=== PATIENT | male | born 1950 | race Hispanic/Latino ===

== ENCOUNTER 2018-09-11 07:12 | Day surgery (SDC) | payer OTHER, MEDICARE ==
[2018-09-08 11:38] LABS: EOSINOPHILS % (AUTO) 2.4 % (0.0-8.0); HEMATOCRIT 44.4 % (36-48); LYMPHOCYTES % (AUTO) 26.9 % (21.0-51.0); MEAN CORPUSCULAR HEMOGLOBIN 29.5 pg (27.0-33.0); MEAN CORPUSCULAR HGB CONC 32.9 g/dL (32.0-36.0); MEAN CORPUSCULAR VOLUME 89.8 fL (79-99); MONOCYTES % (AUTO) 6.3 % (3.0-13.0); NEUTROPHILS % (AUTO) 63.4 % (40.0-77.0); PLATELET COUNT (AUTO) 272 K/uL (130-400); RED BLOOD CELL COUNT(AUTO) 4.94 MIL/uL (4.00-5.50); RED CELL DISTRIBUTION WIDTH 13.6 % (11.0-15.5); WHITE BLOOD COUNT (AUTO) 6.3 K/uL (4.8-10.8)
[2018-09-08 11:40] VITALS: BP 111/78
[2018-09-08 11:53] LABS: INR 0.94 (0.85-1.15); PARTIAL THROMBOPLASTIN TIME 30.6 SEC (26.3-35.5); PROTHROMBIN TIME 9.9 SEC (9.6-11.6)
[2018-09-08 11:57] LABS: CREATININE 0.8 mg/dL (0.5-1.5); POTASSIUM 4.4 mmol/L (3.5-5.1)
[2018-09-08 12:12] LABS: APPEARANCE,URINE Clear (CLEAR); BILIRUBIN,URINE Negative (NEGATIVE); COLOR,URINE Yellow (YELLOW); GLUCOSE, URINE (UA) Negative (NEGATIVE); KETONES,URINE Negative (NEGATIVE); LEUKOCYTE ESTERASE ,URINE Large (NEGATIVE); NITRATE,URINE Positive (NEGATIVE); OCCULT BLOOD,URINE Small (NEGATIVE); PROTEIN,URINE Negative (NEGATIVE); UROBILINOGEN,URINE 0.2 mg/dL (0.2-1.0)
[2018-09-08 12:23] LABS: BACTERIA,URINE Moderate /HPF (None Seen); RBC,URINE 0-1 /HPF (0-1); SQUAMOUS EPITHELIAL CELL,UR 0-2 /HPF (0-2)
--- NOTE | 2018-09-10 08:00 | NUR ---
PRE OP ANTIBIOTIC CALLED DR. CORTEZ TO CLARIFY PRE OP ANTIBIOTICS. PER DR. CORTEZ, CANCEL ZOSYN. GIVE MEROPENEM 1 GRAM IV LINEN GRADER. CONTINUE WITH GENTAMICIN.
[2018-09-11] VITALS (13 sets, daily range): BP systolic 90–136; BP diastolic 43–76
[~2018-09-11] VITALS: Ht 172.7 cm; Wt 78.4 kg
[~2018-09-11 07:12] MED LIST: FLUT1AER IH; LOSA25TA41 PO; PRAV40TA3 PO; TAMS0.4C32 PO; ZOSYN 3.375GM+NS 50ML 50 ML IV SCH
[2018-09-11] MEDS ORDERED: GENTAMICIN 80 MG/NS 100 ML PB 0 ML IV ONE (07:40)
[2018-09-11] MEDS ORDERED: LACTATED RINGERS 1000ML 1,000 ML IV ONE (07:55)
[2018-09-11] MEDS: GENTAMICIN SULFATE 390 MG in SODIUM CHLORIDE 0.9% 100 ML IV SCH ×2 (08:00→09:35)
[2018-09-11] MEDS ORDERED: MEROPENEM 1 GM VIAL IVP PRN (08:00)
[2018-09-11] MEDS ORDERED: SUCCINYLCHOLINE 200MG/10ML SYR ONE (09:22)
[2018-09-11] MEDS ORDERED: DEXAMETHASONE SOD PHOSPHATE 10MG/ML 1ML VIAL ONE (09:22)
[2018-09-11] MEDS ORDERED: ONDANSETRON HCL 4 MG/2 ML VIAL ONE (09:22)
[2018-09-11] MEDS ORDERED: NEOSTIGMINE 5MG/5ML SYR IV ONE (09:22)
[2018-09-11] MEDS ORDERED: ROCURONIUM 10MG/1ML SYR 10 MG/ML ML ONE (09:22)
[2018-09-11] MEDS ORDERED: PROPOFOL 10 MG/ML 20ML VIAL IV ONE (09:22)
[2018-09-11] MEDS ORDERED: LIDOCAINE PF 2% 5ML ABBOJECT ONE ×2 (09:22→09:23)
[2018-09-11] MEDS ORDERED: GLYCOPYRROLATE 1 MG/5 ML SYRINGE ONE (09:22)
[2018-09-11] MEDS ORDERED: MIDAZOLAM HCL 1 MG/ML 2ML VIAL ONE (09:22)
[2018-09-11] MEDS ORDERED: FENTANYL CITRATE PF 50 MCG/1 ML 2ML VIAL ONE (09:23)
[2018-09-11] MEDS ORDERED: OPIUM/BELLADONNA ALKALOIDS 1 EACH SUPP.RECT RC ONE (10:49)
[2018-09-11] MEDS ORDERED: BACITRACIN 1 EACH PACKET TP ONE (11:18)
--- NOTE | 2018-09-11 11:20 | NUR ---
DR LOW NOTIFIED OF SBP IN THE , PT. OTHERWISE STABLE, AWAKE AND ALERT. NO NEW ORDERS THIS TIME, OK TO D/C. Addendum: 09/11/18 at 1305 by JUNE IRWIN RN RN Amended: Links added.
== END 2018-09-11 12:07 | disposition home or self-care (01) ==
LOC: DAH 07:12
PROVIDERS: ATTEND Urology
DX: N40.1 Benign prostatic hyperplasia with lower urinary tract symptoms (principal); R33.8 Other retention of urine; I10 Essential (primary) hypertension; E78.5 Hyperlipidemia, unspecified; M19.90 Unspecified osteoarthritis, unspecified site; Z98.890 Other specified postprocedural states; Z79.899 Other long term (current) drug therapy; J44.9 Chronic obstructive pulmonary disease, unspecified; Z86.73 Personal history of transient ischemic attack (TIA), and cerebral infarction without residual deficits; Z79.01 Long term (current) use of anticoagulants
CPT/HCPCS: 36415; 52648; 71045; 80048; 81001; 85025; 85610; 85730; 87077; 87088; 87186; 93005; A4218; A4354; A4358; A4600; A4930; C1758; J0330; J1100; J1580; J2001 ×2; J2185; J2405; J2704; J2710; J3010; J3490; J7030; J7120 ×2; J2250

== ENCOUNTER → 2021-07-24 | Outpatient (CLI) | payer OTHER, MEDICARE ==
[~2021-07-24] MED LIST changes: -ZOSYN 3.375GM+NS 50ML 50 ML IV SCH
== END | disposition home or self-care (01) ==
LOC: SHCH 08:57
PROVIDERS: ATTEND Internal Medicine Cardiovascular Disease
DX: I10 Essential (primary) hypertension (principal); R55 Syncope and collapse
CPT/HCPCS: 93306; 93356